=== PATIENT | female | born 1930 | race Caucasian/White ===

== ENCOUNTER 2018-02-11 06:24 | Inpatient (IN) | payer OTHER ==
[~2018-02-11] VITALS: Ht 152.4 cm; Wt 64.0 kg
[2018-02-11] MEDS ORDERED: ALBUTEROL SULF 2.5 MG/0.5ML(0.5%) NEB SOLN HHN ONE (06:45)
[2018-02-11] MEDS ORDERED: methylPREDNISolone SOD SUCC 125 MG/2 ML VL IV ONE (06:45)
[2018-02-11] MEDS ORDERED: IPRATROPIUM BROM 0.5 MG/2.5ML INH SOL HHN ONE (06:45)
[2018-02-11] MEDS ORDERED: cefTRIAXone 1GM/10ml IVPUSH 10 ML IV ONE (07:00)
[2018-02-11 07:41] LABS: Basophils # (auto) 0 uL; Basophils % (auto) 0.3 % (0.0-2.0); Eosinophils % (auto) 6.4 % (0.0-7.0); Hematocrit 31.1 % (36.0-46.0); Hemoglobin 10.5 g/dL (12.2-16.2); Lymphocytes # (auto) 1.3 uL; Lymphocytes % (auto) 8.4 % (10.0-50.0); Mean Corpuscular Hemoglobin 34.1 pg (28.0-32.0); Mean Corpuscular Hgb Conc. 33.7 g/dL (32.0-36.0); Mean Corpuscular Volume 101.1 fL (80.0-100.0); Monocytes # (auto) 1.1 uL; Monocytes % (auto) 7.4 % (0.0-12.0); Neutrophils # (auto) 11.7 uL; Neutrophils % (auto) 77.5 % (37.0-80.0); Platelet Count (auto) 377 10^3/uL (140-450); Red Blood Cells 3.07 10^6/uL (4.0-5.20); Red Cell Distribution Width 12.3 % (11.8-14.3); White Blood Cell 15.1 10^3/uL (4.4-10.8)
[2018-02-11] MEDS ORDERED: ACETAMINOPHEN 325 MG TAB PO ONE (08:00)
[2018-02-11 08:48] LABS: BUN/Creatinine Ratio 23.5; Bilirubin, Total 0.3 mg/dL (0.2-1.0); Calcium 8.8 mg/dL (8.5-10.1); Magnesium 2.1 mg/dL (1.6-2.6); Potassium 4.7 mmol/L (3.5-5.1); Total Protein 7.6 g/dL (6.4-8.2)
[2018-02-11] MEDS ORDERED: ASPirin-EC 81 mg tab PO ONE (11:00)
[2018-02-11] MEDS ORDERED: HYDROcodone-ACET 10/325MG TAB PO PRN (11:00)
[2018-02-11] MEDS ORDERED: NITROGLYCERIN 0.4 MG SL TAB SL PRN (11:00)
[2018-02-11] MEDS ORDERED: MORPHINE SULFATE 8mg/ml INJ SDV IV PRN ×2 (11:00)
[2018-02-11] MEDS ORDERED: ONDANSETRON HCL 4 MG/2 ML VIAL IV PRN (11:00)
[2018-02-11] MEDS ORDERED: PANTOPRAZOLE 40 MG TAB PO ONE (11:00)
[2018-02-11] MEDS ORDERED: LEVOTHYROXINE SODIUM 50 MCG TAB PO ONE ×2 (11:00→11:15)
[2018-02-11] MEDS ORDERED: AZITHROMYCIN 500MG/ 250ML 250 ML IV ONE (11:00)
[2018-02-11] MEDS ORDERED: DOCUSATE SOD 100 MG CAP PO PRN (11:00)
[2018-02-11] MEDS ORDERED: TEMAZEPAM 15 MG CAP PO PRN (11:00)
[2018-02-11 11:05] VITALS: BP 114/71
[2018-02-11] MEDS ORDERED: MULTIPLE VITAMIN TAB PO ONE (11:15)
[2018-02-11] MEDS ORDERED: LACTULOSE 20Gm/30ML SOLN PO ONE (11:15)
[2018-02-11] MEDS ORDERED: GEMFIBROZIL 600 MG TAB PO ONE (11:15)
[2018-02-11] MEDS ORDERED: FAMOTIDINE 20 MG TAB PO ONE (11:15)
[2018-02-11] MEDS: LORATADINE 10 MG TAB PO SCH (11:58)
[2018-02-11] MEDS: BOOST PLUS 8 ounce PO SCH ×3 (13:28→22:00)
[2018-02-11] MEDS: SODIUM CHLOR 0.9% PF (SALINE LOCK) 10ML VIAL/SYR IV SCH ×2 (14:04→22:01)
[2018-02-11] MEDS: IPRATROPIUM BROM 0.5 MG/2.5ML INH SOL NEB SCH ×3 (14:25→21:50)
[2018-02-11] MEDS: ALBUTEROL SULF 2.5 MG/0.5ML(0.5%) NEB SOLN NEB SCH ×3 (14:25→21:50)
[2018-02-11] MEDS: ACETAMINOPHEN 325 MG TAB PO PRN ×2 (15:33→20:31)
[2018-02-11 16:01] LABS: Urine Bacteria NONE SEEN /hpf (None Seen); Urine Blood Negative /uL (Negative); Urine Specific Gravity 1.024 (1.001-1.035); Urine WBC 2 /hpf (0 - 5)
[2018-02-11] MEDS ORDERED: BUDESONIDE (INHALATION) 0.5 MG/2 ML NEB NEB SCH (22:00)
[2018-02-11] MEDS: GEMFIBROZIL 600 MG TAB PO SCH (22:00)
[2018-02-11] MEDS: FAMOTIDINE 20 MG TAB PO SCH (22:00)
[2018-02-12] MEDS: ACETAMINOPHEN 325 MG TAB PO PRN (02:36)
[2018-02-12] MEDS ORDERED: LORazepam 2MG/ML-1ML VIAL IV ONE ×2 (04:15→11:15)
[2018-02-12] MEDS ORDERED: LORazepam 2MG/ML-1ML VIAL ONE ×2 (04:16→11:12)
[2018-02-12] MEDS: SODIUM CHLOR 0.9% PF (SALINE LOCK) 10ML VIAL/SYR IV SCH ×3 (06:00→23:02)
[2018-02-12 07:07] LABS: Basophils # (auto) 0 uL; Basophils % (auto) 0.2 % (0.0-2.0); Eosinophils # (auto) 0.8 uL; Eosinophils % (auto) 4.1 % (0.0-7.0); Hematocrit 32.1 % (36.0-46.0); Hemoglobin 10.6 g/dL (12.2-16.2); Lymphocytes % (auto) 5.2 % (10.0-50.0); Mean Corpuscular Hemoglobin 33.6 pg (28.0-32.0); Mean Corpuscular Hgb Conc. 33.1 g/dL (32.0-36.0); Mean Corpuscular Volume 101.4 fL (80.0-100.0); Monocytes # (auto) 0.9 uL; Monocytes % (auto) 4.9 % (0.0-12.0); Neutrophils # (auto) 16.2 uL; Neutrophils % (auto) 85.6 % (37.0-80.0); Platelet Count (auto) 378 10^3/uL (140-450); Red Blood Cells 3.17 10^6/uL (4.0-5.20); Red Cell Distribution Width 12.3 % (11.8-14.3); White Blood Cell 18.9 10^3/uL (4.4-10.8)
[2018-02-12 07:30] LABS: Potassium 4.4 mmol/L (3.5-5.1)
[2018-02-12] MEDS: BOOST PLUS 8 ounce PO SCH ×4 (07:33→22:00)
[2018-02-12] MEDS: LEVOTHYROXINE SODIUM 50 MCG TAB PO SCH (07:33)
[2018-02-12 07:34] LABS: Albumin 1.7 g/dL (3.4-5.0); BUN/Creatinine Ratio 29.5; Calcium 8.4 mg/dL (8.5-10.1)
[2018-02-12] MEDS: IPRATROPIUM BROM 0.5 MG/2.5ML INH SOL NEB SCH ×6 (07:34→23:00)
[2018-02-12] MEDS: ALBUTEROL SULF 2.5 MG/0.5ML(0.5%) NEB SOLN NEB SCH ×6 (07:34→23:00)
[2018-02-12 07:37] LABS: Bilirubin, Total 0.3 mg/dL (0.2-1.0); Total Protein 6.5 g/dL (6.4-8.2)
[2018-02-12] MEDS: cefTRIAXone 1GM/10ml IVPUSH 10 ML IV SCH (09:16)
[2018-02-12] MEDS ORDERED: PATIENTS OWN MEDICATION IN SCH (10:00)
[2018-02-12] MEDS ORDERED: PATIENTS OWN MEDICATION PO SCH (10:00)
[2018-02-12] MEDS ORDERED: AZITHROMYCIN 500MG/ 250ML 200 ML IV SCH (10:00)
[2018-02-12] MEDS: LACTULOSE 20Gm/30ML SOLN PO SCH (10:42)
[2018-02-12] MEDS: LORATADINE 10 MG TAB PO SCH (10:43)
[2018-02-12] MEDS: ASPirin-EC 81 mg tab PO SCH (10:43)
[2018-02-12] MEDS: FAMOTIDINE 20 MG TAB PO SCH ×2 (10:43→22:00)
[2018-02-12] MEDS: GEMFIBROZIL 600 MG TAB PO SCH ×2 (10:43→22:00)
[2018-02-12] MEDS: PANTOPRAZOLE 40 MG TAB PO SCH (10:43)
[2018-02-12] MEDS: MULTIPLE VITAMIN TAB PO SCH (10:43)
[2018-02-12] MEDS ORDERED: LORazepam 2MG/ML-1ML VIAL IV PRN (11:45)
[2018-02-12] MEDS ORDERED: VANCOMYCIN PER PHARMACY 0 MG IV SCH (12:00)
[2018-02-12] MEDS ORDERED: ONDANSETRON HCL 4 MG/2 ML VIAL IV PRN (12:30)
[2018-02-12] MEDS: MORPHINE SULFATE 8mg/ml INJ SDV IV PRN ×2 (12:45→21:09)
[2018-02-12] MEDS: VANCOMYCIN 1GM/250ML 250 ML IV SCH (13:48)
[2018-02-12] MEDS ORDERED: ONDA4TAB5 PO (14:58)
[2018-02-12] MEDS ORDERED: LEVO50TA7 PO (14:58)
[2018-02-12] MEDS ORDERED: OMEP20TA PO (14:58)
[2018-02-12] MEDS ORDERED: CETI1TAB36 PO (14:58)
[2018-02-12] MEDS ORDERED: HYDR-4072 PO (14:58)
[2018-02-12] MEDS ORDERED: CARB0.5D36 EACHEYE (14:58)
[2018-02-12] MEDS ORDERED: ASPI81TA27 PO (14:58)
[2018-02-12] MEDS ORDERED: GEMF600T3 PO (14:58)
[2018-02-12 15:20] VITALS: BP 130/66
[2018-02-12] MEDS ORDERED: HYOSCYAMINE SULF 0.125 MG TAB SL PRN (16:30)
[2018-02-12] MEDS: LORazepam 2MG/ML-1ML VIAL IV PRN (16:49)
[2018-02-12 17:00] VITALS: BP 122/58
[2018-02-13] MEDS: IPRATROPIUM BROM 0.5 MG/2.5ML INH SOL NEB SCH ×6 (02:00→19:47)
[2018-02-13] MEDS: ALBUTEROL SULF 2.5 MG/0.5ML(0.5%) NEB SOLN NEB SCH ×6 (02:00→19:47)
[2018-02-13] MEDS: MORPHINE SULFATE 8mg/ml INJ SDV IV PRN ×6 (02:20→22:06)
[2018-02-13 05:00] VITALS: BP 94/68
[2018-02-13] MEDS: LORazepam 2MG/ML-1ML VIAL IV PRN ×5 (05:32→21:29)
[2018-02-13] MEDS: BOOST PLUS 8 ounce PO SCH ×4 (06:00→22:00)
[2018-02-13] MEDS: LEVOTHYROXINE SODIUM 50 MCG TAB PO SCH (06:15)
[2018-02-13] MEDS: SODIUM CHLOR 0.9% PF (SALINE LOCK) 10ML VIAL/SYR IV SCH ×3 (06:16→22:00)
[2018-02-13 06:54] LABS: Basophils # (auto) 0.1 uL; Basophils % (auto) 0.3 % (0.0-2.0); Eosinophils # (auto) 0.9 uL; Eosinophils % (auto) 4.7 % (0.0-7.0); Hematocrit 33.4 % (36.0-46.0); Hemoglobin 10.8 g/dL (12.2-16.2); Lymphocytes # (auto) 1.3 uL; Lymphocytes % (auto) 7.1 % (10.0-50.0); Mean Corpuscular Hemoglobin 33.5 pg (28.0-32.0); Mean Corpuscular Hgb Conc. 32.4 g/dL (32.0-36.0); Mean Corpuscular Volume 103.4 fL (80.0-100.0); Monocytes % (auto) 5.5 % (0.0-12.0); Neutrophils # (auto) 15.7 uL; Neutrophils % (auto) 82.4 % (37.0-80.0); Nucleated Red Blood Cells % 0.1 %; Platelet Count (auto) 303 10^3/uL (140-450); Red Blood Cells 3.23 10^6/uL (4.0-5.20); Red Cell Distribution Width 12.4 % (11.8-14.3)
[2018-02-13 07:23] LABS: Potassium 4.8 mmol/L (3.5-5.1)
[2018-02-13 07:36] LABS: Albumin 1.6 g/dL (3.4-5.0); BUN/Creatinine Ratio 36.6; Calcium 8.6 mg/dL (8.5-10.1); Total Protein 6.6 g/dL (6.4-8.2)
[2018-02-13 07:56] LABS: Bilirubin, Total 0.7 mg/dL (0.2-1.0)
[2018-02-13 09:00] VITALS: BP 99/68
[2018-02-13] MEDS: cefTRIAXone 1GM/10ml IVPUSH 10 ML IV SCH (09:51)
[2018-02-13] MEDS: MULTIPLE VITAMIN TAB PO SCH (10:00)
[2018-02-13] MEDS: LACTULOSE 20Gm/30ML SOLN PO SCH (10:00)
[2018-02-13] MEDS: PANTOPRAZOLE 40 MG TAB PO SCH (10:00)
[2018-02-13] MEDS: FAMOTIDINE 20 MG TAB PO SCH ×2 (10:00→22:00)
[2018-02-13] MEDS: LORATADINE 10 MG TAB PO SCH (10:00)
[2018-02-13] MEDS: ASPirin-EC 81 mg tab PO SCH (10:00)
[2018-02-13] MEDS: GEMFIBROZIL 600 MG TAB PO SCH ×2 (10:00→22:00)
[2018-02-13] MEDS ORDERED: SODIUM CHLORIDE 0.9% 1,000 ML IV SCH (11:45)
[2018-02-13 13:00] VITALS: BP 115/55
[2018-02-13] MEDS: VANCOMYCIN 1GM/250ML 250 ML IV SCH (13:16)
[2018-02-13 18:00] VITALS: BP 124/64
[2018-02-13 22:00] VITALS: BP 103/60
== END 2018-02-14 02:45 | disposition expired | DRG 871 ==
LOC: ER 06:24 → OVERFLOW 06:25 → EAST 02-12 13:23
PROVIDERS: ADMIT Internal Medicine; ATTEND Internal Medicine
DX: A41.9 Sepsis, unspecified organism (principal); J18.9 Pneumonia, unspecified organism; J96.01 Acute respiratory failure with hypoxia; L89.329 Pressure ulcer of left buttock, unspecified stage; E44.0 Moderate protein-calorie malnutrition; J44.0 Chronic obstructive pulmonary disease with (acute) lower respiratory infection; J84.10 Pulmonary fibrosis, unspecified; J45.901 Unspecified asthma with (acute) exacerbation; J44.1 Chronic obstructive pulmonary disease with (acute) exacerbation; Z99.81 Dependence on supplemental oxygen; Z51.5 Encounter for palliative care; E78.5 Hyperlipidemia, unspecified; K21.9 Gastro-esophageal reflux disease without esophagitis; E03.9 Hypothyroidism, unspecified; D63.8 Anemia in other chronic diseases classified elsewhere; N18.3 Chronic kidney disease, stage 3 (moderate); Z68.27 Body mass index [BMI] 27.0-27.9, adult; Z88.8 Allergy status to other drugs, medicaments and biological substances; Z88.1 Allergy status to other antibiotic agents; Z91.041 Radiographic dye allergy status
CPT/HCPCS: 36415; 36600; 71045; 71250; 80053; 81001; 82805; 83605; 83735; 83880; 84484; 85025; 87040; 87077; 87186; 93005; 93306; 94640; 94644; 96374; 96375; 96376; 99291; G0378; J2270; J2405